=== PATIENT | male | born 1995 | race American Indian/Alaskan Native ===

== ENCOUNTER 2017-05-02 16:20 | Emergency (ER) | payer MEDICAID ==
[2017-05-02 16:27] VITALS: BP 132/84; RESP 18; TEMP 98.2; O2SAT 100
[2017-05-02 17:08] LABS: RBC URINE 3 /hpf (0-3); URINE BACTERIA FEW (<OCC); URINE BILIRUBIN NEGATIVE (NEGATIVE); URINE BLOOD NEGATIVE (NEGATIVE); URINE COLOR Yellow (YELLOW); URINE GLUCOSE (UA) NORMAL (Normal); URINE KETONE TRACE mg/dL (NEGATIVE); URINE LEUKOCYTE ESTERASE TRACE Leu/uL (Negative); URINE PROTEIN 2+ mg/dL (NEGATIVE); URINE UROBILINOGEN NORMAL mg/dL (0.2-1.0); WBC URINE 16 /hpf (0-5)
[2017-05-02] MEDS ORDERED: cefTRIAXone (Rocephin) 250 mg Inj IM STA (17:23)
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
[2017-05-02 17:56] VITALS: PULSE 90
== END 2017-05-02 17:55 | disposition home or self-care (01) ==
LOC: C.ER 16:20
DX: N34.2 Other urethritis (principal)

== ENCOUNTER 2017-09-30 12:06 | Emergency (ER) | payer MEDICAID ==
[2017-09-30 12:37] LABS: URINE BILIRUBIN NEGATIVE (NEGATIVE); URINE BLOOD NEGATIVE (NEGATIVE); URINE CLARITY Hazy (Clear); URINE COLOR Yellow (YELLOW); URINE GLUCOSE (UA) NORMAL (Normal); URINE LEUKOCYTE ESTERASE NEG Leu/uL (Negative); URINE NITRATE NEGATIVE (NEGATIVE); URINE PROTEIN 1+ mg/dL (NEGATIVE)
[2017-09-30 13:10] VITALS: RESP 18
[2017-09-30 13:50] VITALS: BP 100/66; PULSE 111; TEMP 100.1; O2SAT 96
--- NOTE | 2017-09-30 14:17 | C.PDOC ---
History Of Present Illness 22 year old male presents to ED for evaluation of high fever, nausea, headache, abdominal pain, cough, and congestion since yesterday. Otherwise, denies vomiting, diarrhea, or any other complaints at this time. Time Seen by Provider: 09/30/17 12:23 Chief Complaint (Nursing): Abdominal Pain History Per: Patient History/Exam Limitations: no limitations Onset/Duration Of Symptoms: Days Current Symptoms Are (Timing): Still Present Past Medical History Reviewed: Historical Data, Nursing Documentation, Vital Signs Vital Signs: Last Vital Signs Temp 100.1 F H 09/30/17 13:49 Pulse 111 H 09/30/17 13:49 Resp 18 09/30/17 13:49 BP 100/66 09/30/17 13:49 Pulse Ox 96 09/30/17 14:17 Family History: States: Unknown Family Hx - Social History Hx Alcohol Use: No Hx Substance Use: No - Immunization History Hx Tetanus Toxoid Vaccination: Yes Hx Influenza Vaccination: No Hx Pneumococcal Vaccination: No Review Of Systems Except As Marked, All Systems Reviewed And Found Negative. Constitutional: Positive for: Fever ENT: Positive for: Nose Congestion Respiratory: Positive for: Cough. Negative for: Shortness of Breath Gastrointestinal: Positive for: Nausea, Abdominal Pain. Negative for: Vomiting , Diarrhea Neurological: Positive for: Headache Physical Exam - Physical Exam Appears: Non-toxic, No Acute Distress Skin: Normal Color, Warm, Dry Head: Atraumatic, Normacephalic Eye(s): bilateral: Normal Inspection, EOMI Oral Mucosa: Moist Neck: Normal ROM, Supple Cardiovascular: Rhythm Regular, No Murmur Respiratory: Normal Breath Sounds, No Rales, No Rhonchi, No Wheezing Gastrointestinal/Abdominal: Soft, No Tenderness Extremity: Normal ROM, No Deformity Neurological/Psych: Oriented x3, Normal Speech ED Course And Treatment O2 Sat by Pulse Oximetry: 96 (RA) Pulse Ox Interpretation: Normal Progress Note: Influenza AB, UA ordered and reviewed. Pt is positive for Influenza A. Pt was given Tamiflu and Tylenol. On reassessment, patient is resting comfortably, and is in no acute distress, non-toxic. No meningeal signs. Patient was instructed to follow up with physician/clinic in 1-2 days for further evaluation. Disposition - Disposition Referrals: Mae Herndon MD [Staff Provider] - Disposition: HOME/ ROUTINE Disposition Time: 14:14 Condition: IMPROVED Additional Instructions: Follow up with PMD within 1-2 days. Return to ED if feel worse. Prescriptions: Brompheniramine/Pseudoephed/Dm [Bromfed Dm Cough 118 ml] 10 ml PO Q4 #300 ml Ibuprofen [Motrin Tab] 600 mg PO Q8 #30 tab Oseltamivir [Tamiflu] 75 mg PO BID #9 cap Ondansetron ODT [Zofran ODT] 4 mg PO .Q4-6H PRN #20 odt PRN Reason: Nausea/Vomiting Instructions: Influenza (ED) Forms: Face [employer] Face [employer] (Grenadian) - Clinical Impression Clinical Impression: Influenza A - PA / REPORTING MANAGER / Resident Statement MD/DO has reviewed & agrees with the documentation as recorded. - Scribe Statement The provider has reviewed the documentation as recorded by the Scribphilippe Stubbs All medical record entries made by the Dreaibphilippe were at my direction and personally dictated by me. I have reviewed the chart and agree that the record accurately reflects my personal performance of the history, physical exam, medical decision making, and the department course for this patient. I have also personally directed, reviewed, and agree with the discharge instructions and disposition.
== END 2017-09-30 14:27 | disposition home or self-care (01) ==
LOC: C.ER 12:06
DX: J09.X2 Influenza due to identified novel influenza A virus with other respiratory manifestations (principal)

== ENCOUNTER 2018-01-10 21:55 | Emergency (ER) | payer MEDICAID ==
[2018-01-10 22:20] VITALS: BP 119/74; PULSE 100; RESP 20; TEMP 98.4; O2SAT 99
[2018-01-10] MEDS ORDERED: Tetanus/Diphtheria Toxoids 0.5 ml Syringe IM ONE ×2 (22:53→22:56)
[2018-01-10] MEDS ORDERED: Lidocaine Hydrochloride 5 ML INJ ONE (22:55)
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
== END 2018-01-10 23:34 | disposition home or self-care (01) ==
LOC: C.ER 21:55
DX: S01.81XA Laceration without foreign body of other part of head, initial encounter (principal); Y04.0XXA Assault by unarmed brawl or fight, initial encounter